=== PATIENT | female | born 1990 | race Two or more races ===

== ENCOUNTER 2016-05-16 13:19 | Emergency (ER) | payer MEDICAID ==
[2016-05-16] MEDS ORDERED: IBUPROFEN 800 MG TABLET PO ONE (13:58)
[2016-05-16 13:59] VITALS: BP 140/77
--- NOTE | 2016-05-16 13:59 | ER Document Report ---
ED Medical Screen (RME) - General Stated Complaint: TOOTH PAIN Notes: filling fell out about a year ago presents with pain and no swelling, drainage or odorI have greeted and performed a rapid initial assessment of this patient. A comprehensive ED assessment and evaluation of the patient, analysis of test results and completion of the medical decision making process will be conducted by additional ED providers., fevers, muscle aches, drooling TRAVEL OUTSIDE OF THE [place] IN LAST 30 DAYS: No Past Medical History Past Surgical History: Reports: Hx Section - Immunizations Hx Diphtheria, Pertussis, Tetanus Vaccination: Yes
--- NOTE | 2016-05-16 15:30 | ER Document Report ---
HPI - HPI Patient complains to provider of: tooth pain and decay Onset: Last week Onset/Duration: Gradual Quality of pain: Throbbing Pain Level: 3 Context: 25 yo female c/o lower right dental pain especially after part of the filling fell out. no fever or faical swelling. Associated Symptoms: None Exacerbated by: Denies Relieved by: Denies Similar symptoms previously: No Recently seen / treated by doctor: No - ROS ROS below otherwise negative: Yes Systems Reviewed and Negative: Yes All other systems reviewed and negative - REPRODUCTIVE Reproductive: DENIES: : - DERM Skin Color: Normal - NURSING COMMENTS Comment: Pt arrived to ED c/o right lower tooth pain s/p filling coming out 1 year ago. Pt states the pain started last night and is constant. Pt has slight swelling to right lower jaw. No redness present. Pt guarding mouth. Pt states pain increases with touching of area. Pt has even rise and fall of chest. Will continue to monitor. Past Medical History - General Information source: Patient - Social History Smoking Status: Current Every Day Smoker Cigarette use (# per day): Yes Chew tobacco use (# tins/day): No Frequency of alcohol use: None Drug Abuse: None Lives with: Family Family History: Reviewed & Not Pertinent Patient has homicidal ideation: No - Medical History Medical History: Negative Renal/ Medical History: Denies: Hx Peritoneal Dialysis Past Surgical History: Reports: Hx Section - Immunizations Hx Diphtheria, Pertussis, Tetanus Vaccination: Yes Vertical Provider Document - CONSTITUTIONAL Agree With Documented VS: Yes Exam Limitations: No Limitations - INFECTION CONTROL TRAVEL OUTSIDE OF THE [place] IN LAST 30 DAYS: No - HEENT HEENT: Normocephalic Mouth Diagram: 1 - tooth with partial filling loss, retracting of the gingiva - NECK Neck: Supple. negative: Lymphadenopathy-Left, Lymphadenopathy-Right - RESPIRATORY Respiratory: Breath Sounds Normal, No Respiratory Distress O2 Sat by Pulse Oximetry: 98 - CARDIOVASCULAR Cardiovascular: Regular Rate, Regular Rhythm - MUSCULOSKELETAL/EXTREMETIES Musculoskeletal/Extremeties: ARYA ANDERSON - NEURO Level of Consciousness: Awake, Alert - DERM Integumentary: Warm, Dry, No Rash Course - Vital Signs Vital signs: Temp Pulse Resp BP Pulse Ox 98.4 F 82 16 140/77 H 98 05/16/16 13:57 05/16/16 13:57 05/16/16 13:57 05/16/16 13:57 05/16/16 13:57 Discharge - Discharge Clinical Impression: dental pain and decay Condition: Good Disposition: HOME, SELF-CARE Instructions: Penicillin V K ([facility]), Toothache ([facility]), Dentist, Acetaminophen, Use of Htzj-Fvz-Rosxogy Ibuprofen ([facility]) Additional Instructions: see the dentist to er any fever, facial or mouth swelling Prescriptions: Penicillin V Potassium [Penicillin Vk 500 mg Tablet] 500 mg PO QID #40 tablet Forms: Return to Work
== END 2016-05-16 15:55 | disposition home or self-care (01) ==
LOC: ER 13:19
DX: K02.9 Dental caries, unspecified (principal); K08.89 Other specified disorders of teeth and supporting structures; F17.210 Nicotine dependence, cigarettes, uncomplicated
CPT/HCPCS: 99282; J3490